=== PATIENT | male | born 1935 | race Caucasian/White ===

== ENCOUNTER → 2017-11-07 | Outpatient (CLI) | payer MEDICARE, BC ==
[~2017-11-07] MED LIST: ALPR0.254 PO; ASCO500T8 PO; ASPI325T17 PO; ATOR10TA PO; CALC1CAP8 PO; CELE200C PO; CHOL400T2 PO; CYAN1TAB29 PO; FISH1CAP PO; FLAX100013 PO; LOSA100T2 PO; NIFE60TA13 PO; OXYC-302 PO; VITA400T6 PO; [UNRECOGNIZED DRUG - OTHER] PO
== END ==
LOC: ROC 13:09
PROVIDERS: ATTEND Radiology Radiation Oncology
DX: C61 Malignant neoplasm of prostate (principal); Z79.82 Long term (current) use of aspirin
CPT/HCPCS: G0463

== ENCOUNTER → 2018-10-18 | Outpatient (CLI) | payer MEDICARE, BC | END | disposition home or self-care (01) | LOC: ROC 08:22 | PROVIDERS: ATTEND Radiology Radiation Oncology | DX: C61 Malignant neoplasm of prostate (principal) | CPT/HCPCS: G0463 ==

== ENCOUNTER → 2019-11-10 | Outpatient (CLI) | payer MEDICARE, BC | END | disposition home or self-care (01) | LOC: ROC 07:37 | PROVIDERS: ATTEND Radiology Radiation Oncology | DX: C61 Malignant neoplasm of prostate (principal) | CPT/HCPCS: G0463 ==